=== PATIENT | male | born 2000 | race Caucasian/White ===

== ENCOUNTER 2022-09-12 22:00 | Emergency (ER) | payer OTHER, SELFPAY ==
[2022-09-12 22:04] VITALS: BP 106/66; PULSE 120; RESP 20; TEMP 37.3; O2SAT 97
[2022-09-12 23:02] LABS: Lactate* 1.7 mmol/L (0.5-1.9)
[2022-09-12 23:03] LABS: Basophils Percent Auto 0.2 % (0.0-3.0); Hemoglobin* 16.2 gm/dL (13.5-17.5); Immature Granulocytes Pct Auto 0.3 %; Mean Corpuscular HGB Conc 35 gm/dL (32-36); Mean Corpuscular Hemoglobin 29 pg (26-34); Mean Corpuscular Volume 83 fL (80-100); Monocytes Percent Auto 6.3 % (0.0-11.0); Neutrophils Percent Auto 88.2 % (42.0-72.0); Platelet Count* 189 K/uL (140-440); RDW Coefficient of Variation % 12.2 % (11.5-15.5); Red Blood Count 5.52 m/uL (4.30-5.90); Slide Review Reflex No; White Blood Count* 13.32 K/uL (4.50-11.00)
[2022-09-12] MEDS: 0.9 % SODIUM CHLORIDE 1000 ml 1,000 ML IV (23:04)
[2022-09-12] MEDS: ONDANSETRON 2 MG/ML inj 4 MG IVP (23:05)
[2022-09-12 23:16] LABS: Albumin* 4.8 g/dL (3.3-5.0); Chloride* 97 mmol/L (96-114)
[2022-09-12 23:17] LABS: Potassium* 3.2 mmol/L (3.6-5.1); Sodium* 135 mmol/L (135-149)
[2022-09-12 23:19] LABS: Aspartate Amino Transferase* 38 U/L (12-35); Bilirubin Direct* 0.3 mg/dL (0.0-0.5); Carbon Dioxide* 28 mmol/L (20-32); Estimated Glomerular Filt Rate 110 ml/min; Total Protein* 7.7 g/dL (6.0-8.3)
[2022-09-12 23:20] LABS: Alanine Aminotransferase* 26 U/L (4-50); Alkaline Phosphatase* 65 U/L (40-150); Blood Urea Nitrogen* 20 mg/dL (5-24); Calcium* 9.7 mg/dL (8.4-10.6); Glucose* 109 mg/dL (60-115); Lipase* 36 U/L (23-300)
[2022-09-12 23:22] LABS: C Reactive Protein* 1.4 mg/dL (0.5-1.0)
[2022-09-12] MEDS: KETOROLAC 15 MG/ML inj IVP (23:54)
[2022-09-12] MEDS: ACETAMINOPHEN 500 MG TABLET 1000 MG PO (23:54)
--- NOTE | 2022-09-13 00:48 | ED_ITS ---
HPI - General Adult General Date Seen: 09/13/22 Chief complaint: Fever Stated complaint: Vomiting, fever Time Seen by Provider: 09/12/22 22:39 Source: patient Mode of arrival: ambulatory Limitations: no limitations History of Present Illness HPI narrative: Patient is a 22-year-old male who presents for acute onset of vomiting, fever, body aches earlier today. He has had about 5 episodes of vomiting. He does not have significant abdominal pain. No ill exposures. No urinary symptoms. Has had mono previously. Denies respiratory symptoms. Related Data Home Medications Medication Instructions Recorded Confirmed No Known Home Medications 03/10/22 03/10/22 Allergies Allergy/AdvReac Type Severity Reaction Status Date / Time amoxicillin Allergy Mild Rash Verified 03/10/22 16:00 Review of Systems Status of ROS: Reports: 10 or more systems reviewed and unremarkable except as noted in History and below [facility] Social History Smoking Status: Never smoker Exam Narrative: Exam Narrative: Vital signs as noted above. In general, an alert, well-appearing patient. Head: Normocephalic, atraumatic. Eyes: Pupils are equal reactive. Extraocular movements are full. ENT: Mucous membranes are somewhat dry. Neck: Supple without lymphadenopathy. No meningeal signs. Heart: Tachycardic and regular. Lungs: Clear bilaterally. No increased work of breathing, crackles or wheezes. No CVA tenderness. Abdomen: Soft and nontender. No organomegaly. Bowel sounds present. Extremities: Well perfused. No edema. No calf tenderness. Pulses intact. Neurologic: Patient is alert and oriented to person and place. Speech is fluent. Face is symmetric. Moves all extremities equally. Affect: Normal. Skin: Warm and dry. Well perfused. Const: Vital Signs, click to edit/add: Vital Signs - 24 hr 09/12/22 22:04 Temperature 99.2 F Pulse Rate [Left P ulse Oximeter] 120 H Respiratory Rate 20 Blood Pressure [Ri ght Upper Arm] 106/66 Pulse Oximetry 97 Oxygen Delivery Me thod Room Air Documenting provider has reviewed patient's vital signs: yes Course Course Hospital Course: Patient on IV placed was given a L of normal saline, Zofran, ultimately was given Toradol for body aches and headache and Tylenol. He was improved with fluids and Zofran, was able to keep down some fluids without difficulty. Labs were notable for mildly elevated white blood cell count of 13, normal hemoglobin and platelets. Electrolytes notable for mildly low potassium at 3.2 otherwise normal. Blood sugar was 109. Lactate was normal at 1.7. His total bilirubin was elevated at 4, direct was 0.3, AST is 38, ALT normal. Alk-phos was normal. CRP was mildly elevated at 1.4. Lipase was 36. I did look with the bedside ultrasound, I do not see any evidence of gallstones or wall thickening, does not have any tenderness over the gallbladder. Abdomen remains benign. He is feeling improved with medications. He does have a history apparently of elevated bilirubin when he had mono as well, I suspect he may have Gilbert's disease, but discussed with him that in light of his current symptoms I would recommend he be seen in clinic in a couple of days for recheck of his LFTs. If he acutely worsens, has significant upper abdominal pain, notices yellowing of the skin or eyes, is not able to keep anything down etcetera he should come back to the ER. I prescribe some Zofran for home use. At this time I do not see clinical evidence of cholecystitis, pancreatitis, ascending cholangitis or other acute abdominal processes. Discussed that assuming symptoms are viral I would expect him to be feeling better over the next 24 hours and if not he should be seen again for recheck. Vital Signs Vital signs: Initial Vital Signs Temperature 99.2 F 09/12/22 22:04 Temperature Source Temporal Artery Scan 09/12/22 22:04 Pulse Rate 120 H 09/12/22 22:04 Pulse Rhythm Regular 09/12/22 22:04 Respiratory Rate 20 09/12/22 22:04 Blood Pressure 106/66 09/12/22 22:04 Blood Pressure Mean 79 09/12/22 22:04 Blood Pressure Position Sitting 09/12/22 22:04 Pulse Oximetry 97 09/12/22 22:04 Oxygen Delivery Method Room Air 09/12/22 22:04 Vital Signs Temperature 99.2 F 09/12/22 22:04 Pulse Rate 120 H 09/12/22 22:04 Respiratory Rate 20 09/12/22 22:04 Blood Pressure 106/66 09/12/22 22:04 Pulse Oximetry 97 09/12/22 22:04 Oxygen Delivery Method Room Air 09/12/22 22:04 Temperature 99.2 F 09/12/22 22:04 Pulse Rate 120 H 09/12/22 22:04 Respiratory Rate 20 09/12/22 22:04 Blood Pressure 106/66 09/12/22 22:04 Pulse Oximetry 97 09/12/22 22:04 Oxygen Delivery Method Room Air 09/12/22 22:04 Medical Decision Making Lab Data Labs: Lab Results 09/12/22 Range/Units 22:56 WBC 13.32 H (4.50-11.00) K/uL RBC 5.52 (4.30-5.90) m/uL Hgb 16.2 (13.5-17.5) gm/dL Hct 46.0 (37.0-53.0) % MCV 83 (80-100) fL MCH 29 (26-34) pg MCHC 35 (32-36) gm/dL RDW Coeff of Tiffanie 12.2 (11.5-15.5) % Plt Count 189 (140-440) K/uL Neut % (Auto) 88.2 H (42.0-72.0) % Lymph % (Auto) 5.0 L (20-44) % [place] % (Auto) 6.3 (0.0-11.0) % Eos % (Auto) 0.0 (0.0-7.0) % Baso % (Auto) 0.2 (0.0-3.0) % Neut # (Auto) 11.70 H (1.7-7.0) K/uL Lymph # (Auto) 0.70 L (0.90-2.90) K/uL [place] # (Auto) 0.80 (0.00-0.90) K/UL Eos # (Auto) 0.00 (0.00-0.50) K/uL Baso # (Auto) 0.00 (0.00-0.30) K/uL Sodium 135 (135-149) mmol/L Potassium 3.2 L (3.6-5.1) mmol/L Chloride 97 (96-114) mmol/L Carbon Dioxide 28 (20-32) mmol/L BUN 20 (5-24) mg/dL Creatinine 1.0 (0.5-1.5) mg/dL Estimated GFR 110 ml/min Glucose 109 (60-115) mg/dL Lactate 1.7 (0.5-1.9) mmol/L Calcium 9.7 (8.4-10.6) mg/dL Total Bilirubin 4.0 H (0.1-1.5) mg/dL Direct Bilirubin 0.3 (0.0-0.5) mg/dL AST 38 H (12-35) U/L ALT 26 (4-50) U/L Alkaline Phosphatase 65 (40-150) U/L C-Reactive Protein 1.4 H (0.5-1.0) mg/dL Total Protein 7.7 (6.0-8.3) g/dL Albumin 4.8 (3.3-5.0) g/dL Lipase 36 (23-300) U/L Discharge Plan Discharge Clinical Impression: Indirect hyperbilirubinemia, Acute viral syndrome Patient Disposition: Home, Self-Care Condition: Improved Instructions: Viral Syndrome (ED), Jaundice (ED) Additional Instructions: Zofran if needed, maintain hydration. Return to the ER for significant abdominal pain, yellowing of the skin her eyes, uncontrolled vomiting. Symptoms are likely viral, and should improve over the next 24-48 hours. If not you should be seen again. Your bilirubin level is high today at 4. Your other liver function tests are normal, but this should be followed up to make sure that your bilirubin is normalizing and other liver function tests are not changing. I suspect he may have something called Gilbert's syndrome, but this is a diagnosis of exclusion and given your acute illness I would like you to follow-up in clinic and make sure that your liver functions are stable to improving. You can schedule appointment with our clinic at [phone], or you can be seen at the [facility] in [facility] if that is more convenient. Prescriptions: No Action No Known Home Medications Follow Up/Referrals: Provider,Not a Local [Primary Care Provider] - Stand Alone Forms: Scaleform Info Instructions
== END 2022-09-13 01:07 | disposition home or self-care (01) ==
PROVIDERS: Emergency Provider Emergency Medicine
DX: E80.6 Other disorders of bilirubin metabolism (principal); B34.9 Viral infection, unspecified
CPT/HCPCS: 36415; 80048; 80076; 81001; 83605; 83690; 85025; 86140; 96361; 96374; 96375; 99284; A9270; J1885; J2405; J7030

== ENCOUNTER 2022-11-12 19:59 | Emergency (ER) | payer OTHER, SELFPAY ==
[2022-11-12 20:02] VITALS: BP 116/79; PULSE 75; RESP 20; TEMP 36.4; O2SAT 96; BMI 25.1
--- NOTE | 2022-11-12 20:23 | ED_ITS ---
HPI - Nausea/Vomiting/Diarrhea General Date Seen: 11/12/22 Chief complaint: Nausea/Vomiting Stated complaint: Nausea, vomiting Time Seen by Provider: 11/12/22 20:03 Source: patient and other (Significant other) Mode of arrival: ambulatory Limitations: no limitations History of Present Illness HPI Narrative: Patient is a very nice 22-year-old gentleman who presents here with a 48 hour history of vomiting, he has vomited up approximately 5-6 times, driving as clear and whenever he is eating, there is no biliary component, denies any blood associated with this, he also has epigastric discomfort, and feels better right after he vomits. He is passing gas, but has not had a stool last 48 hours. He just returned from [place] tells. Denies a X use of alcohol, he does not use any other illicit substances or marijuana. Does have a history of this in the past was seen here few months ago, told that his liver function tests were elevated. He actually has an appointment coming up for follow-up of that regard. He does use a lot of ibuprofen for aches and pains, commonly takes a 2 to 3 times a day, at 600 mg. Denies any significant hospitalizations in the past, other than described above. 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 Did use approximately 4 doses of Zofran which she had left over from the previous hospitalization. Works at [employer] see here in town, from [place], followed a girl here, was going to college. No significant diarrhea noted, he has not been antibiotics, he has had no fevers, no coughing, sore throat, rashes associated with this. Related Data Home Medications Medication Instructions Recorded Confirmed No Known Home Medications 03/10/22 03/10/22 Allergies Allergy/AdvReac Type Severity Reaction Status Date / Time amoxicillin Allergy Mild Rash Verified 11/12/22 20:05 Review of Systems Status of ROS: Reports: 10 or more systems reviewed and unremarkable except as noted in History and below [facility] Social History Smoking Status: Never smoker Exam Narrative: Exam Narrative: On examination in room 1 he is in no apparent distress pleasant and alert nontoxic speaking to me normally his pupils are equal round reactive to light, there is no scleral icterus noted, TMs are normal, oropharynx is normal, with the normal repair from a cleft palate. Neck is supple, absence of meningismus, is noted no lymphadenopathy, chest is clear bilaterally with occasional wheezes. Heart sounds are normal, his abdomen is soft, some tenderness on deep palpation over his epigastric is noted. Bowel sounds are normal, he is not distended, skin reveals no petechiae rashes, he moves all extremities independently well, he does not have a tremor or hepatic flap. Const: Vital Signs, click to edit/add: Vital Signs - 24 hr 11/12/22 20:02 Temperature 97.5 F L Pulse Rate [Right Pulse Oximeter] 75 Respiratory Rate 20 Blood Pressure [Ri ght Upper Arm] 116/79 Pulse Oximetry 96 Oxygen Delivery Me thod Room Air Course Reevaluation(s) Time of Reevaluation #1: 21:25 Reevaluation #1: Patient has some akathisia secondary to the Reglan. This was improved with the use of some Ativan. I went saw him and reassured him. Time of Reevaluation #2: 22:40 Reevaluation #2: Patient feels better with no further vomiting, given the low likelihood that the urine will be helpful. We will discharge him before we get a urine. I spoke to his girlfriend, as he is pretty tired. Vital Signs Vital signs: Initial Vital Signs Temperature 97.5 F L 11/12/22 20:02 Temperature Source Temporal Artery Scan 11/12/22 20:02 Pulse Rate 75 11/12/22 20:02 Pulse Rhythm Regular 11/12/22 20:02 Pulse Strength 3+ Normal 11/12/22 20:02 Respiratory Rate 20 11/12/22 20:02 Blood Pressure 116/79 11/12/22 20:02 Blood Pressure Mean 91 11/12/22 20:02 Blood Pressure Position Sitting 11/12/22 20:02 Pulse Oximetry 96 11/12/22 20:02 Oxygen Delivery Method Room Air 11/12/22 20:02 Vital Signs Temperature 97.5 F L 11/12/22 20:02 Pulse Rate 75 11/12/22 20:02 Respiratory Rate 20 11/12/22 20:02 Blood Pressure 116/79 11/12/22 20:02 Pulse Oximetry 96 11/12/22 20:02 Oxygen Delivery Method Room Air 11/12/22 20:02 Temperature 97.5 F L 11/12/22 20:02 Pulse Rate 75 11/12/22 20:02 Respiratory Rate 20 11/12/22 20:02 Blood Pressure 116/79 11/12/22 20:02 Pulse Oximetry 96 11/12/22 20:02 Oxygen Delivery Method Room Air 11/12/22 20:02 MDM - Nausea/Vomiting/Diarrhea MDM Narrative Medical decision making narrative: Differential diagnosis includes but is not limited to viral gastroenteritis, drug food poisoning, pyloric stenosis, gastritis, pancreatitis, hepatitis, cholecystitis, appendicitis, bowel obstruction, hyperemesis, cyclic vomiting syndrome, bulimia nervosa, migraine headache, motion sickness and medication side effect. These include the life threatening complications of appendicitis, drug food poisoning and bowel obstruction. 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 With the elevated total bili and a normal direct. His LFTs were reasonable last time he is here. I will start a couple L of fluids will use Reglan this time for his vomiting, as has already tried Zofran. I do believe a little bit of this is least from likely gastritis from the use of NSAIDs. Medical Records Attestation: I reviewed the patient's medical records. Lab Data Attestation: I reviewed the patient's lab results. Labs: Lab Results 11/12/22 Range/Units 20:35 WBC 6.43 (4.50-11.00) K/uL RBC 5.52 (4.30-5.90) m/uL Hgb 16.0 (13.5-17.5) gm/dL Hct 46.2 (37.0-53.0) % MCV 84 (80-100) fL MCH 29 (26-34) pg MCHC 35 (32-36) gm/dL RDW Coeff of Tiffanie 12.4 (11.5-15.5) % Plt Count 186 (140-440) K/uL Neut % (Auto) 51.7 (42.0-72.0) % Lymph % (Auto) 34.7 (20-44) % [place] % (Auto) 11.5 H (0.0-11.0) % Eos % (Auto) 1.9 (0.0-7.0) % Baso % (Auto) 0.2 (0.0-3.0) % Neut # (Auto) 3.33 (1.7-7.0) K/uL Lymph # (Auto) 2.23 (0.90-2.90) K/uL [place] # (Auto) 0.70 (0.00-0.90) K/UL Eos # (Auto) 0.12 (0.00-0.50) K/uL Baso # (Auto) 0.01 (0.00-0.30) K/uL Abs Immat Gran (auto) 0.00 (0.00-0.30) K/uL Imm/Tot Granulo (auto) 0.0 % Sodium 137 (135-149) mmol/L Potassium 3.3 L (3.6-5.1) mmol/L Chloride 99 (96-114) mmol/L Carbon Dioxide 30 (20-32) mmol/L BUN 21 (5-24) mg/dL Creatinine 1.1 (0.5-1.5) mg/dL Estimated Creat Clear 106.23 Estimated GFR 98 ml/min Glucose 90 (60-115) mg/dL Calcium 9.0 (8.4-10.6) mg/dL Total Bilirubin 3.0 H (0.1-1.5) mg/dL Direct Bilirubin 0.1 (0.0-0.5) mg/dL AST 27 (12-35) U/L ALT 19 (4-50) U/L Alkaline Phosphatase 65 (40-150) U/L Total Protein 7.1 (6.0-8.3) g/dL Albumin 4.2 (3.3-5.0) g/dL Lipase 34 (23-300) U/L SARS-CoV-2 (PCR) Negative SARS-CoV-2 (Negative) Influenza Type A (PCR) Negative PCR FLU A (Negative) Influenza Type B (PCR) Negative PCR FLU B (Negative) RSV (PCR) Negative PCR RSV (Negative) Labs consistent with Gilbert syndrome Discharge Plan Discharge Clinical Impression: Gastritis, Vomiting Patient Disposition: Home w/ Parent or Adult Condition: Improved Instructions: Gastritis (DC), Diet for Stomach Ulcers and Gastritis (ED), Acute Nausea and Vomiting (DC) Additional Instructions: Home rest start the Prilosec 20 mg a day it is [id number], 1 should take this for a minimum of 4 weeks. Cheapest placed a by this is at [facility] or [employer]. Lots of fluids, and stop ibuprofen. You may use Tylenol for discomfort, follow-up with primary care, this eyes ongoing then upper endoscopy will be needed. The Zofran is a good anti nausea medication but does cause constipation which clearly on the x-ray you are constipated. Lots of fluids, and some MiraLax would be a great suggestion. If you Start throwing up blood, or have a lot worse abdominal pain then come back to the emergency room. I put the name of a good primary care doctor on the discharge that she may follow up with. Prescriptions: No Action No Known Home Medications Follow Up/Referrals: Jovnay Schafer MD [Staff Physician] - Provider,Not a Local [Primary Care Provider] - Stand Alone Forms: [employer] Info Instructions
[2022-11-12] MEDS: 0.9 % SODIUM CHLORIDE 1000 ml 1,000 ML IV ×2 (20:40→21:58)
[2022-11-12] MEDS: SODIUM CHLORIDE 0.9% IVPB (20:41)
[2022-11-12] MEDS: METOCLOPRAMIDE HCL IVPB (20:41)
[2022-11-12] MEDS: diphenhydrAMINE 50 MG/ML inj 25 MG IVP (20:42)
[2022-11-12] MEDS: KETOROLAC 30 MG/ML inj IVP (20:43)
[2022-11-12] MEDS: PANTOPRAZOLE SODIUM 40 MG INJ IVP (20:43)
[2022-11-12 20:55] LABS: Basophils Absolute Auto 0.01 K/uL (0.00-0.30); Basophils Percent Auto 0.2 % (0.0-3.0); Eosinophils Absolute Auto 0.12 K/uL (0.00-0.50); Eosinophils Percent Auto 1.9 % (0.0-7.0); Hematocrit 46.2 % (37.0-53.0); Lymphocytes Absolute Auto 2.23 K/uL (0.90-2.90); Lymphocytes Percent Auto 34.7 % (20-44); Mean Corpuscular HGB Conc 35 gm/dL (32-36); Mean Corpuscular Hemoglobin 29 pg (26-34); Mean Corpuscular Volume 84 fL (80-100); Monocytes Percent Auto 11.5 % (0.0-11.0); Neutrophils Absolute Auto 3.33 K/uL (1.7-7.0); Neutrophils Percent Auto 51.7 % (42.0-72.0); Platelet Count* 186 K/uL (140-440); RDW Coefficient of Variation % 12.4 % (11.5-15.5); Red Blood Count 5.52 m/uL (4.30-5.90); White Blood Count* 6.43 K/uL (4.50-11.00)
[2022-11-12 21:07] LABS: Albumin* 4.2 g/dL (3.3-5.0)
[2022-11-12 21:08] LABS: Chloride* 99 mmol/L (96-114); Potassium* 3.3 mmol/L (3.6-5.1); Sodium* 137 mmol/L (135-149)
[2022-11-12] MEDS: LORazepam 2 MG/ML inj 1 MG IVP (21:09)
[2022-11-12 21:10] LABS: Alkaline Phosphatase* 65 U/L (40-150); Aspartate Amino Transferase* 27 U/L (12-35); Bilirubin Direct* 0.1 mg/dL (0.0-0.5); Blood Urea Nitrogen* 21 mg/dL (5-24); Carbon Dioxide* 30 mmol/L (20-32); Creatinine* 1.1 mg/dL (0.5-1.5); Est. Creatinine Clearance* 106.23; Estimated Glomerular Filt Rate 98 ml/min; Total Protein* 7.1 g/dL (6.0-8.3)
[2022-11-12 21:11] LABS: Alanine Aminotransferase* 19 U/L (4-50); Glucose* 90 mg/dL (60-115); Lipase* 34 U/L (23-300)
[2022-11-12 21:20] LABS: Slide Review Reflex No
[2022-11-12 21:32] LABS: PCR FLU A Negative PCR FLU A (Negative); PCR FLU B Negative PCR FLU B (Negative); PCR RSV Negative PCR RSV (Negative)
[2022-11-12 21:34] LABS: SARS PCR* Negative SARS-CoV-2 (Negative)
--- NOTE | 2022-11-12 21:35 | CRLHL7_ITS ---
For Patients: As a result of the Century Cures Act, medical imaging exams and procedure reports are released immediately into your electronic medical record. You may view this report before your referring provider. If you have questions, please contact your health care provider. Indication: Epigastric pain Technique: Supine and upright views of the abdomen Comparison: None Findings/Impression: : Soft tissues: No suspicious calcifications. No sign of free air. No sign of soft tissue mass. Bowel: Bowel pattern is within normal limits. Moderate amount of stool in the colon. Bones: Mild S shaped scoliosis. Dictated by Keily Velazquez MD @ 11/12/2022 10:23:24 PM (Electronically Signed)
== END 2022-11-12 22:35 | disposition home or self-care (01) ==
LOC: ED 22:30
PROVIDERS: Emergency Provider Family Medicine
DX: R11.2 Nausea with vomiting, unspecified (principal)
CPT/HCPCS: 36415; 74019; 80048; 80076; 81001; 83690; 85025; 87631; 96365; 96375; 99284; C9113; J1200; J1885; J2060; J2765; J7030